=== PATIENT | female | born 1970 | race Caucasian/White ===

== ENCOUNTER → 2019-09-27 | Outpatient (CLI) | payer OTHER | END | disposition home or self-care (01) | LOC: MAMMO 10:57 | PROVIDERS: ATTEND Nurse Practitioner Family | DX: Z12.31 Encounter for screening mammogram for malignant neoplasm of breast (principal) | CPT/HCPCS: 77063; 77067 ==

== ENCOUNTER → 2019-11-16 | Outpatient (CLI) | payer OTHER ==
--- NOTE | 2019-11-16 16:19 | RAD ---
Examination: 1. Bilateral digital diagnostic mammogram. 2. Bilateral Limited diagnostic breast ultrasound. INDICATION: 49-year-old woman recalled from screening for developing nodularity in the right breast, and for developing architectural distortion in the medial left breast. By report, patient has had a previous left breast benign biopsy. On direct questioning, patient reports the biopsy was a needle biopsy, not an excisional biopsy but is unable to state when such a biopsy occurred. COMPARISON: mammograms of 08/10/17, 12/17/18 and 09/27/19, left breast ultrasound of 10/08/17, and right breast ultrasound of 01/06/19. TECHNIQUE: Spot compression views of both breasts in the CC projection were obtained in addition to spot MLO views and a full-field left ML view. FINDINGS: Heterogeneously dense breast parenchyma. Additional views of the right breast reveal a waxing and waning nodular parenchymal pattern compatible with benign cystic change. Targeted ultrasound of the upper outer quadrant right breast in the area of mammographic concern recalled from screening confirmed several sonographically benign cysts, largest measuring 2 cm at the 11:00 position 8 cm from the nipple. No solid masses or suspicious sonographic findings in the right breast on targeted ultrasound of the upper outer quadrant. Additional views left breast confirmed persistent architectural distortion with central lucency in the lower inner quadrant left breast. No biopsy marker is evident. Additional nodularity in the left breast was also observed, largest representing an oval circumscribed 2.5 cm mass that was previously evaluated on ultrasound and has not significantly changed in over 2 years of follow-up. This has sonographically benign features suggestive of a hamartoma or fibroadenoma. Targeted ultrasound of the lower inner quadrant left breast however identified at the 8:00 position 7 cm from the nipple an isoechoic parallel orientation spiculated 7 mm mass without significant internal vascularity. There is some posterior acoustic shadowing. IMPRESSION: 1. The right breast is benign and may return to routine screening in one year. 2. The left breast shows a spiculated 7 mm lower inner quadrant mass that is moderately suspicious for malignancy. Ultrasound-guided left breast core needle biopsy is recommended. Our technologist will assist with communicating findings and recommendations to the patient and her referring physician and with scheduling follow-up. BI-RADS Category 4: Suspicious. Ultrasound-guided left breast core needle biopsy is recommended BI-RADS 4 -- suspicious abnormality, biopsy recommended
== END | disposition home or self-care (01) ==
LOC: MAMMO 12:57
PROVIDERS: ATTEND Nurse Practitioner Family
DX: N63.24 Unspecified lump in the left breast, lower inner quadrant (principal); N60.01 Solitary cyst of right breast
CPT/HCPCS: 76641; 77066